=== PATIENT | male | born 1980 | race Caucasian/White ===

== ENCOUNTER 2019-05-26 07:30 | Outpatient (CLI) | payer OTHER, SELFPAY ==
--- NOTE | 2019-05-26 07:39 | ECHO_ITS ---
Patient Info Name: Leander Pathak Age: 38 years : 1980 Gender: Male Ht: 73 in Wt: 353 lbs BSA: 2.95 m2 HR: 82 bpm BP: 150 / 85 mmHg Heart Rhythm: Sinus Rhythm Technical Quality: Good Exam Date: 05/26/2019 7:59 AM Exam Location: [facility] Patient Status: Outpatient Admit Date: 05/26/2019 Staff Ordering Physician: Jovana Gonzalez NP Personal Property Assessor: Latoya Rojas RDCS Attending Provider: Jovana Gonzalez NP Referring Physician: Lisa SANCHES; Exam Type: CA echo doppler color flow Study Info Indications R60.9 - Edema, unspecified Complete two-dimensional, color flow and Doppler transthoracic echocardiogram is performed. Summary 1. Left ventricular chamber dimension is normal. 2. Left ventricular systolic function is normal, estimated at 60-65%. 3. The left ventricular diastolic function is grade II diastolic dysfunction. 4. E/e' 6 is not elevated. 5. Left atrial chamber dimension is mildly enlarged. 6. Right atrial chamber dimension is mildly enlarged. 7. No pulmonary hypertension, estimated pulmonary arterial systolic pressure is 23 mmHg. 8. There is trace pulmonic regurgitation. Left Ventricle E/e' 6 is not elevated. Left ventricular chamber dimension is normal. Left ventricular systolic function is normal, estimated at 60-65%. The left ventricular diastolic function is grade II diastolic dysfunction. Right Ventricle Right ventricular chamber dimension is normal. Right ventricular systolic function is normal. Left Atria Left atrial chamber dimension is mildly enlarged. Right Atria Right atrial chamber dimension is mildly enlarged. Aortic Valve The aortic valve is trileaflet. There is no aortic valve stenosis. There is no aortic valve regurgitation. Pulmonic Valve There is trace pulmonic regurgitation. Mitral Valve There is no mitral valve stenosis. There is no mitral valve regurgitation. Tricuspid Valve There is no tricuspid valve regurgitation. No pulmonary hypertension, estimated pulmonary arterial systolic pressure is 23 mmHg. Pericardium/Pleural There is no pericardial effusion. Inferior Vena Cava Normal inferior vena cava with >50% collapse upon inspiration consistent with normal right atrial pressure, 5 mmHg. Aorta The aortic root size at the sinus of Valsalva is normal. Left Ventricular Outflow Tract Name Value Normal LVOT 2D LVOT Diameter 2.4 cm LVOT Doppler LVOT Peak Gradient 5 mmHg LVOT Mean Gradient 2 mmHg LVOT VTI 22 cm LVOT VTI/AV VTI Ratio 0.8 LVOT Stroke Volume 96 ml LVOT CO 18.2 l/min LVOT CI 6.2 l/min/m2 Pulmonic Valve Name Value Normal RVOT Doppler RVOT
== END 2019-05-26 07:31 | disposition home or self-care (01) ==
PROVIDERS: PCP Internal Medicine; Visit Provider Nurse Practitioner
DX: R60.9 Edema, unspecified (principal); I10 Essential (primary) hypertension
CPT/HCPCS: 93306

== ENCOUNTER → 2020-12-15 05:24 | Outpatient (CLI) | payer OTHER, SELFPAY ==
[2020-12-15 17:47] LABS: SARS-CoV-2 RNA PCR Negative
== END ==
PROVIDERS: PCP Internal Medicine; Visit Provider Surgery
DX: Z01.812 Encounter for preprocedural laboratory examination (principal); Z20.822 Contact with and (suspected) exposure to COVID-19
CPT/HCPCS: C9803; U0003; U0005

== ENCOUNTER 2020-12-15 08:30 | Outpatient (CLI) | payer OTHER, SELFPAY ==
--- NOTE | 2020-12-15 09:00 | ECG_ITS ---
Measurements Intervals [place] Rate: 64 P: 44 DC: 138 QRS: -12 QRSD: 100 T: -3 QT: 373 QTc: 386 Interpretive Statements SINUS RHYTHM WITH SINUS ARRHYTHMIA DELAYED PRECORDIAL R/S TRANSITION BORDERLINE T WAVE ABNORMALITY- INFERIOR LEADS BORDERLINE ECG Electronically Signed On 12-15-2020 8:56:22 CDT by Shreyas Ignacio D.O.
== END 2020-12-15 08:31 | disposition home or self-care (01) ==
LOC: ANHSURGERY 08:35
PROVIDERS: PCP Internal Medicine; Visit Provider Surgery
DX: K42.9 Umbilical hernia without obstruction or gangrene (principal); I10 Essential (primary) hypertension; Z01.818 Encounter for other preprocedural examination
CPT/HCPCS: 36415; 86850; 86900; 86901; 93005

== ENCOUNTER 2020-12-18 00:36 | Day surgery (SDC) | payer OTHER, SELFPAY ==
[2020-12-11 14:56] VITALS: BMI 50.1
[2020-12-18] VITALS (9 sets, daily range): BP systolic 90–160; BP diastolic 54–89; PULSE 52–76; RESP 16–20; TEMP 36.4–36.7; O2SAT 93–100
[2020-12-18] MEDS: ACETAMINOPHEN 500 MG TABLET 1000 MG PO (06:49)
[2020-12-18] MEDS: KETOROLAC 15 MG/ML VIAL (*BKC) IV PUSH (06:51)
[2020-12-18] MEDS: LACTATED RINGERS 1,000 ML 30 ML IV CONT (07:07)
--- NOTE | 2020-12-18 07:10 | WPDANESEPPF ---
Anes - Initial Pre Proc Eval Procedure: Operation Date: 12/18/20 07:30 Proposed Procedures p Robotic Assisted Laparoscopic Umbilical Hernia Repair with Mesh - Elda Johnston MD Date/Time: 12/18/20 07:10 Surgeon: Elda Johnston MD Pre Op Diagnosis: umbilical hernia Patient Data Age: 40 Gender: M Height: 1.85 m Weight: 172.37 kg Allergies Allergy/AdvReac Type Severity Reaction Status Date / Time codeine Allergy Unknown Hives Verified 12/11/20 14:55 Home Medications Medication Instructions Recorded Confirmed Type lisinopril 30 mg tablet 30 mg PO DAILY #90 tablet 11/22/20 12/11/20 Rx Patient hx anesthesia problems: none Family hx anesthesia problems: none Results Review: All pre-operative results and documents have been reviewed as part of the pre-operative evaluation. [facility] Past Medical History Medical History ADD (attention deficit disorder) Chicken pox HTN (hypertension) Hyperthyroidism TORY (obstructive sleep apnea) Surgical History Surgical History H/O vasectomy S/P ACL reconstruction Left knee, twice Family History Family History Mother Thyroid disease Carcinoma of colon Father Patient's father is in good health Grandparent Heart disease Social History Social History Smoking status: Never smoker Alcohol intake: current Drinks per week: 4 Substance use: never Substance use type: does not use Living arrangements: with family Additional living arrangements comments: CHILDREN Spiritual care concerns: No Anes - Eval Final PreProcedure Day of Procedure 12/18/20 07:10 Patient weight: super morbidly obese Heart: regular rate and rhythm Lungs: clear to auscultation Airway: Mallampati scale class II Neurological: alert and oriented Last oral intake: >/= 8 hours ASA classification: III Emergent: no Anesthetic plan: proceed Anesthesia type and monitoring: general ETT and standard monitoring Results Review: All pre-operative results and documents have been reviewed as part of the pre-operative evaluation. Informed Consent: The patient's anesthetic plan and its attendant risks and benefits were discussed with the patient/family/POA. Questions were solicited and answers provided to the satisfaction of the patient/family/POA.
--- NOTE | 2020-12-18 07:16 | PM.IMHP ---
H&P: HPI History of Present Illness Date/Time: 12/18/20 07:16 Patient has a umbilical bulge that has been presents for a while , but over the last couple months he reports noticing an increase in size of the bulge and has developed associated tenderness. He does report still being able to easily reduce the bulge and denies N/V or change in bowel habits. Chief Complaint: umbilical hernia Review of Systems Review of Systems: All systems reviewed & are unremarkable except as noted in HPI and below PMFSH Past Medical History Medical History ADD (attention deficit disorder) Chicken pox HTN (hypertension) Hyperthyroidism TORY (obstructive sleep apnea) Surgical History Surgical History H/O vasectomy S/P ACL reconstruction Left knee, twice Family History Family History Mother Thyroid disease Carcinoma of colon Father Patient's father is in good health Grandparent Heart disease Social History Social History Smoking status: Never smoker Alcohol intake: current Drinks per week: 4 Substance use: never Substance use type: does not use Living arrangements: with family Additional living arrangements comments: CHILDREN Spiritual care concerns: No Meds Home Medications and Allergies Home Medications Medication Instructions Recorded Confirmed Type lisinopril 30 mg tablet 30 mg PO DAILY #90 tablet 11/22/20 12/11/20 Rx Allergies Allergy/AdvReac Type Severity Reaction Status Date / Time codeine Allergy Unknown Hives Verified 12/11/20 14:55 Exam Const: General: cooperative, healthy appearing, comfortable and no acute distress Nutritional Appearance: obese Orientation/consciousness: patient oriented x3 Limitations: no limitations Resp: Effort & Inspection: normal respiratory effort Auscultation: clear to auscultation bilaterally Cardio: Rate: regular rate Rhythm: regular rhythm GI: Inspection: normal to inspection GI Palp: Yes Soft to palpation, Yes Tenderness to palpation present (GI), No Guarding due to palpation present (GI) and No Rigid due to palpation Other: moderate sized umbilical hernia, +TTP, incarcerated Assessment and Plan Assessment and plan (1) Umbilical hernia: Qualifiers: Obstruction and gangrene presence: without obstruction or gangrene Qualified Code(s): K42.9 - Umbilical hernia without obstruction or gangrene Code(s): K42.9 - Umbilical hernia without obstruction or gangrene Status: Acute Assessment and Plan: incarcerated and increasing in size and symptoms, will setup for robotic repair (2) Morbid obesity with BMI of 50.0-59.9, adult: Code(s): E66.01 - Morbid (severe) obesity due to excess calories; Z68.43 - Body mass index [BMI] 50.0-59.9, adult Status: Acute Assessment and Plan: cont to encourage lifestyle modifications (3) HTN (hypertension): Qualifiers: Hypertension type: essential hypertension Qualified Code(s): I10 - Essential (primary) hypertension Code(s): I10 - Essential (primary) hypertension Status: Acute Assessment and Plan: cont Lisinopril per primary
--- NOTE | 2020-12-18 07:19 | WPDHPUPDATE1 ---
History and Physical Update Update Date/Time: 12/18/20 07:19 History and Physical has been reviewed, including an updated exam of the patient. There are NO changes in the patient's condition. Risks, benefits, and alternatives have been discussed and questions answered. Patient agrees to proceed with procedure.
[2020-12-18] MEDS: ceFAZolin 3 GM/D5W 100 ML 100 ML IVPB (07:23)
[2020-12-18] MEDS: BUPIVACAINE HCL 0.5% PF 30 ML VIAL INFILTRATE (08:05)
--- NOTE | 2020-12-18 09:14 | P.OP_ITS ---
Procedure Note - Detailed Date of Procedure 12/18/20 Pre-op Diagnosis incarcerated umbilical hernia Post-op Diagnosis same Procedure Performed robotic assisted repair incarecerated umbilical hernia with mesh Surgeon Elda Johnston MD Anesthesia general Indications 40 y/o M c incarcerated umbilical hernia Findings incarcerated umbilical hernia c omentum, fat Description of Procedure The patient was taken the operating room placed in the supine position. After adequate induction of general anesthesia, the patient was prepped and draped in normal sterile fashion. A time-out was then done to verify the patient's identity as well as the procedure being performed. I began by making a 5 mm incision in the left upper quadrant. Through this, a Veress needle was placed into the peritoneal cavity and CO2 gas was insufflated. After adequate pneumoperitoneum was achieved, a 5 mm trocar was placed through this incision. I then placed the laparoscope through this trocar site and under direct visualization I placed a 8 mm port in the left mid abdomen as well as an additional 8 mm port in the left lower abdomen. I then moved the camera to the lower port and replaced the 5 mm port with a 12 mm airport. The robot was then docked to the 3 port sites. I then went to the robotic console. I began by identifying the hernia. A moderate-sized incarcerated hernia was noted in the periumbilical region. Using graspers, I was able to reduce this hernia. The hernia was noted to contain a large amount of preperitoneal fat and omentum. Once reduced, I also reduced and dissected out the hernia sac. I then closed the approximately 4 cm defect with 0 strata fix suture. I then placed a 15 x 10 cm symbotex mesh into the abdominal cavity. The Vicryl stitch was placed in the middle of the mesh and brought up centering the mesh over the defect. Once this was done, I used 2 0 V lock suture x 2 to circumferentially suture the mesh to the abdominal. Once the mesh was completely sutured in, I was happy with our tension-free repair. The mesh was noted to have good overlap of the defect. At this point, the robot was undocked and all ports were removed. I then closed the 12 mm port site with an 0 Vicryl [id number] suture at the fascial level. All port sites were then closed with 4 O Monocryl subcuticular suture. The patient tolerated the procedure well, is extubated in the operating room p ostoperative, OB transferred to the recovery room in stable condition. Implants 15x10 cm Symbotex mesh Estimated Blood Loss 10 Drains No Packing No Pathology none sent Complications No immediate complications Condition stable Disposition PACU
[2020-12-18] MEDS: fentaNYL CITRATE INJ (*CRX) 100 MCG/2 ML VIAL 25 MCG IV PUSH ×4 (09:41→09:49)
[2020-12-18] MEDS: oxyCODONE HCL (*CRX) 5 MG TAB IR PO (10:10)
--- NOTE | 2020-12-18 12:26 | SUR.PHASEII ---
1115 PT MEETS ANESTHESIA DISCHARGE CRITERIA. PT DRESSED & WAITING ON RIDE HOME.
== END 2020-12-18 11:35 | disposition home or self-care (01) ==
PROVIDERS: PCP Internal Medicine; Visit Provider Surgery
PROC: (CPT 49653; principal; 2020-12-18 07:30)
DX: K42.0 Umbilical hernia with obstruction, without gangrene (principal); F98.8 Other specified behavioral and emotional disorders with onset usually occurring in childhood and adolescence; I10 Essential (primary) hypertension; E05.90 Thyrotoxicosis, unspecified without thyrotoxic crisis or storm; G47.33 Obstructive sleep apnea (adult) (pediatric); E66.01 Morbid (severe) obesity due to excess calories; Z68.43 Body mass index [BMI] 50.0-59.9, adult
CPT/HCPCS: 49653; S2900; A9270; C1781; J0690; J1100; J1885; J2250; J2270; J2405; J2704; J3010; J7030; J7120

== ENCOUNTER 2021-01-02 09:20 | Outpatient (CLI) | payer OTHER, SELFPAY ==
--- NOTE | 2021-01-02 11:30 | NEURO_ITS ---
Impression: # Complains of numbness of hands. # Bilateral Carpal Tunnel Syndrome, sensory more than motor. # No ulnar neuropathy. # Normal needle/EMG exam. Nerve Conduction Studies Anti Sensory Summary Table Stim Site NR Peak (ms) P-T Amp (?V) Site1 Site2 Delta-P (ms) Dist (cm) Joshua (m/s) Left Median Anti Sensory (2-3nd Digit) Wrist 3.8 59.2 Wrist 2-3nd Digit 3.8 14.0 37 Wrist 3.6 52.9 Wrist 2-3nd Digit 3.8 14.0 37 Right Median Anti Sensory (2-3nd Digit) Wrist 4.0 24.2 Wrist 2-3nd Digit 4.0 14.0 35 Wrist 4.1 16.8 Wrist 2-3nd Digit 4.0 14.0 35 Left Radial Anti Sensory (Base 1st Digit) Wrist 2.1 14.2 Wrist Base 1st Digit 2.1 0.0 Right Radial Anti Sensory (Base 1st Digit) Wrist 2.1 18.7 Wrist Base 1st Digit 2.1 0.0 Left Ulnar Anti Sensory (5th Digit) Wrist 2.7 29.9 Wrist 5th Digit 2.7 14.0 52 Right Ulnar Anti Sensory (5th Digit) Wrist 2.5 40.0 Wrist 5th Digit 2.5 14.0 56 Motor Summary Table Stim Site NR Onset (ms) O-P Amp (mV) Site1 Site2 Delta-0 (ms) Dist (cm) Joshua (m/s) Left Median Motor (Abd Poll Brev) Wrist 3.8 4.7 Elbow Wrist 4.5 27.0 60 Elbow 8.3 3.2 Right Median Motor (Abd Poll Brev) Wrist 3.9 1.9 Elbow Wrist 4.8 28.0 58 Elbow 8.7 3.2 Left Ulnar Motor (Abd Dig Minimi) Wrist 2.7 8.1 A Elbow Wrist 5.0 30.0 60 A Elbow 7.7 7.3 Right Ulnar Motor (Abd Dig Minimi) Wrist 2.6 8.1 A Elbow Wrist 5.3 32.0 60 A Elbow 7.9 6.4 F Wave Studies NR F-Lat (ms) L-R F-Lat (ms) Left Median (Mrkrs) (Abd Poll Brev) 28.60 1.17 Right Median (Mrkrs) (Abd Poll Brev) 29.77 1.17 Left Ulnar (Mrkrs) (Abd Dig Min) 29.07 0.16 Right Ulnar (Mrkrs) (Abd Dig Min) 28.91 0.16 EMG Side Muscle Nerve Root Ins Act Fibs Amp Dur Recrt Comment Right 1stDorInt Ulnar C8-T1 Nml Nml Nml Nml Nml Right Ext Indicis Radial (Post Int) C7-8 Nml Nml Nml Nml Nml Right Ext Digitorum Radial (Post Int) C7-8 Nml Nml Nml Nml Nml Right BrachioRad Radial C5-6 Nml Nml Nml Nml Nml Right PronatorTeres Median C6-7 Nml Nml Nml Nml Nml Right Abd Poll Brev Median C8-T1 Nml Nml Nml Nml Nml Left 1stDorInt Ulnar C8-T1 Nml Nml Nml Nml Nml Left Ext Indicis Radial (Post Int) C7-8 Nml Nml Nml Nml Nml Left Ext Digitorum Radial (Post Int) C7-8 Nml Nml Nml Nml Nml Left BrachioRad Radial C5-6 Nml Nml Nml Nml Nml Left PronatorTeres Median C6-7 Nml Nml Nml Nml Nml Left Abd Poll Brev Median C8-T1 Nml Nml Nml Nml Nml MTDD
== END 2021-01-02 09:21 | disposition home or self-care (01) ==
LOC: ANHNEURO 09:23
PROVIDERS: PCP Internal Medicine; Visit Provider Nurse Practitioner
DX: G56.03 Carpal tunnel syndrome, bilateral upper limbs (principal)
CPT/HCPCS: 95886; 95911